=== PATIENT | female | born 1990 | race African-American/Black ===

== ENCOUNTER 2016-10-06 13:12 | Emergency (ER) | payer OTHER ==
[~2016-10-06] VITALS: Ht 165.1 cm; Wt 66.7 kg
[~2016-10-06 13:12] MED LIST: DOXYCYCLINE 10100 MG PO; FLEXERIL PO; NAPROSYN500 MG PO; NORCO 5-325 TA1 EACH PO; PERCOCET 5-3251 EACH PO; ROBAFEN AC SYR120 ML PO; TIZANIDINE HCL4 MG PO; XANAX1 MG PO; ZOFRAN ODT8 MG PO; ZPAK PO
[2016-10-06] MEDS ORDERED: IBUPROFEN 200200 M1 PO (14:05)
[2016-10-06 14:08] LABS: URINE BILIRUBIN NEGATIVE (Negative); URINE BLOOD NEGATIVE (Negative); URINE COLOR YELLOW; URINE GLUCOSE-RANDOM* NEGATIVE (Negative); URINE KETONES 1+ (Negative); URINE LEUKOCYTES-REFLEX NEGATIVE (Negative); URINE PROTEIN (DIPSTICK) NEGATIVE (Negative); URINE UROBILINOGEN 0.2 E.U./dl (0.2-1.0)
[2016-10-06 15:07] LABS: ABSOLUTE NEUTROPHILS 8.7 thou/uL (1.4-8.2); EOSINOPHILS 1.6 % (0.0-3.0); HEMATOCRIT 32.2 % (37.0-47.0); LYMPHOCYTES 15.3 % (24.0-44.0); MCH 27.6 pg (26.0-34.0); MCV 81.1 fL (80.0-100.0); MONOCYTES 5.8 % (1.0-8.0); PLATELET COUNT 285 thou/uL (150-400); POLYS 76.3 % (36.0-66.0); RBC 3.97 mil/uL (4.20-5.00); RDW 12.5 % (10.5-14.5); WBC 11.4 thou/uL (4.0-11.0)
[2016-10-06 15:12] LABS: MANUAL DIFF NO
[2016-10-06 15:17] LABS: CALCIUM 8.7 mg/dL (8.5-10.1); CREATININE 0.8 mg/dL (0.6-1.0); POTASSIUM 3.7 mmol/L (3.5-5.1)
[2016-10-06 15:23] LABS: ALBUMIN 3.3 g/dL (3.4-5.0); TOTAL BILIRUBIN 0.6 mg/dL (<0.1-1.0); TOTAL PROTEIN 6.8 g/dL (6.4-8.2)
[2016-10-06] MEDS ORDERED: IBUPROFEN 600600 M1 PO (16:34)
[2016-10-06] MEDS ORDERED: NORCO 5-325 TA1 EACH PO (16:37)
[2016-10-06 16:56] VITALS: BP 124/71
[2016-10-09 05:43] LABS: CHLAMYDIA TRACHOMATIS-PCR Negative (Negative); NEISSERIA GONORRHEA-PCR Negative (Negative)
== END 2016-10-06 16:35 | disposition home or self-care (01) ==
LOC: ER 13:12
PROVIDERS: Emergency Medicine
DX: N83.202 Unspecified ovarian cyst, left side (principal); N83.201 Unspecified ovarian cyst, right side; F17.210 Nicotine dependence, cigarettes, uncomplicated; F10.99 Alcohol use, unspecified with unspecified alcohol-induced disorder; F12.10 Cannabis abuse, uncomplicated; Z98.890 Other specified postprocedural states

== ENCOUNTER 2016-12-04 18:29 | Emergency (ER) | payer OTHER ==
[~2016-12-04] VITALS: Ht 165.1 cm; Wt 65.8 kg
[~2016-12-04 18:29] MED LIST changes: +IBUPROFEN 200200 M1 PO; +IBUPROFEN 600600 M1 PO
[2016-12-04] MEDS ORDERED: CYCLOBENZAPRINE5 MG PO (20:32)
[2016-12-04] MEDS ORDERED: MOBIC7.5 MG PO (20:32)
[2016-12-04 20:36] VITALS: BP 116/68
== END 2016-12-04 20:37 | disposition home or self-care (01) ==
LOC: ER 18:29
DX: S16.1XXA Strain of muscle, fascia and tendon at neck level, initial encounter (principal); S39.012A Strain of muscle, fascia and tendon of lower back, initial encounter; S09.90XA Unspecified injury of head, initial encounter; F17.210 Nicotine dependence, cigarettes, uncomplicated; F12.10 Cannabis abuse, uncomplicated; Z98.890 Other specified postprocedural states; V89.2XXA Person injured in unspecified motor-vehicle accident, traffic, initial encounter; Y93.89 Activity, other specified; Y92.89 Other specified places as the place of occurrence of the external cause; Y99.8 Other external cause status

== ENCOUNTER 2018-12-16 21:52 | Emergency (ER) | payer OTHER ==
[~2018-12-16] VITALS: Ht 165.1 cm; Wt 68.0 kg
[~2018-12-16 21:52] MED LIST changes: +CYCLOBENZAPRINE5 MG PO; +MOBIC7.5 MG PO
[2018-12-16 22:32] LABS: URINE BILIRUBIN NEGATIVE (Negative); URINE BLOOD NEGATIVE (Negative); URINE CLARITY CLEAR; URINE COLOR YELLOW; URINE GLUCOSE-RANDOM* NEGATIVE (Negative); URINE KETONES NEGATIVE (Negative); URINE LEUKOCYTES TRACE (Negative); URINE NITRITE NEGATIVE (Negative); URINE PROTEIN (DIPSTICK) TRACE (Negative); URINE SPECIFIC GRAVITY 1.015 (1.005-1.035); URINE UROBILINOGEN 0.2 E.U./dl (0.2-1.0)
[2018-12-16 23:05] VITALS: BP 152/98
== END 2018-12-16 23:06 | disposition home or self-care (01) ==
LOC: ER 21:52
PROVIDERS: Nurse Practitioner
DX: L29.2 Pruritus vulvae (principal); F17.210 Nicotine dependence, cigarettes, uncomplicated; Z90.721 Acquired absence of ovaries, unilateral